=== PATIENT | female | born 1975 | race Caucasian/White ===

== ENCOUNTER 2023-09-20 06:20 | Day surgery (SDC) | payer OTHER, SELFPAY ==
[2023-09-17 12:05] VITALS: BMI 27.5
--- NOTE | 2023-09-19 09:51 | HO.ANESPROP2 ---
Documented by User: Belen Sullivan NP 09/19/23 09:51 HPI - Anesthesia Eval Consult details Narrative: 48yo F for Upper Endoscopy and Colonoscopy [facility] Past Medical History Medical History Nephrolithiasis Elevated cholesterol Anxiety Surgical History Surgical History History of surgery Hx laparoscopic cholecystectomy Hx of endoscopic retrograde cholangiopancreatography Social History Social History (Updated 09/17/23 @ 12:04 by Shanique Ramirez RN) Patient Tobacco Use Status: Never used Tobacco Are you DNR?: No Advance Directives: No Advance Directives Information Provided: Yes Nutrition Risks: No Nutritional Risk FDLMP: I just finished Meds Allergies Allergy/AdvReac Type Severity Reaction Status Date / Time azithromycin [AZITHROMYCIN] Allergy Intermediate RASH Verified 09/20/23 06:37 miconazole [From MONISTAT 7] Allergy Intermediate RASH Verified 09/20/23 06:37 Home Medications Medication Instructions Recorded Confirmed Last Taken Type No Known Home Meds 09/17/23 09/17/23 Unknown History Exam Exam Date and Time: September 19, 2023 0951 Height,Weight and Vital Signs: Height 5 ft 4 in Weight 72.575 kg Assessment and Plan Assessment Anesthesia Assessment: Chart Reviewed Documented by User: Shane Wang MD 09/20/23 07:25 [facility] Past Medical History Medical History Nephrolithiasis Elevated cholesterol Anxiety Family History Family history of problems with anesthesia: No Surgical History Surgical History History of surgery Hx laparoscopic cholecystectomy Hx of endoscopic retrograde cholangiopancreatography History of Problems with Anesthesia: No Social History Social History (Updated 09/17/23 @ 12:04 by Shanique Ramirez RN) Patient Tobacco Use Status: Never used Tobacco Are you DNR?: No Advance Directives: No Advance Directives Information Provided: Yes Nutrition Risks: No Nutritional Risk FDLMP: I just finished Meds Allergies Allergy/AdvReac Type Severity Reaction Status Date / Time azithromycin [AZITHROMYCIN] Allergy Intermediate RASH Verified 09/20/23 06:37 miconazole [From MONISTAT 7] Allergy Intermediate RASH Verified 09/20/23 06:37 Home Medications Medication Instructions Recorded Confirmed Last Taken Type No Known Home Meds 09/17/23 09/17/23 Unknown History Exam Airway Mallampati Class: II TM Dist: >3cm Neck ROM: Full Assessment and Plan Assessment Anesthesia Assessment: Anesthesia Plan Discussed Final Anesthetic Review Family History of Problems with Anesthesia: No History of Problems with Anesthesia: No NPO: Yes ASA Class: I Final Preanesthetic Review: No Changes in Pt Med Stat, Meds/Allgs Chart Reviewed, Consent Obtained/Reviewed and Anes Risks/Benef Reviewed Patient Risk: Low Procedure Risk: Low Anesthetic Plan Anesthetic Plan: MAC: Disposition: Standard PACU
[2023-09-20 06:36] LABS: UPreg QC Valid YES; Urine Pregnancy NEGATIVE (NEGATIVE)
[2023-09-20] MEDS: Lactated Ringers 1,000 ML 100 ML IVCONT (06:41)
[2023-09-20 06:48] VITALS: BP 109/74; PULSE 94; RESP 18; TEMP 36.7; O2SAT 100
--- NOTE | 2023-09-20 07:32 | P.HPSUR_ITS ---
Pre-Procedural Eval Section A Date of Service: 09/20/23 Section B Chief Complaint: screening,epigastric pain Details of Present Illness: se H&P no changesx Relevant Family History (Specify if Yes): No Relevant Social History: None Present Medications: see Short Stay Collaborative assessment Medical History: No relevant PMH Allergies: Allergies Allergy/AdvReac Type Severity Reaction Status Date / Time azithromycin [AZITHROMYCIN] Allergy Intermediate RASH Verified 09/20/23 06:37 miconazole [From MONISTAT 7] Allergy Intermediate RASH Verified 09/20/23 06:37 Review of Systems Sugical H&P ROS: Negative: Constitution, Cardiovascular, Respiratory, Neurolog ical, Psychiatric, Hem-Onc, Allergic/Immunologic, Gastrointestinal, Genitourinary, Musculoskeletal, Integumentary, Endocrine and Eyes/Ears/Nose/Throat Exam Surgical H&P Exam: Normal: HEENT, Normal: Heart, Normal: Lungs, Normal: Extremities, Normal: Abdomen, Normal: Skin and Normal: Neurological Plan Diagnosis/Plan: Unchanged I have reviewed the history and physical and performed a pertinent physical examination on my patient. No changes have occurred unless specified. Time Spent With Patient Time: Total time managing care of this patient today ____ minutes.
[2023-09-20 08:11] VITALS: BP 104/67; PULSE 86; RESP 16; TEMP 36.7; O2SAT 98
--- NOTE | 2023-09-20 08:14 | PM.OP ---
Brief Operative Note Date of Service: 09/20/23 Pre-op diagnosis: epigastric pain screening Post-op diagnosis: same Procedure: egd colon Surgeon: Wolfgang Villatoro MD Anesthesia: MAC Was an Risk Specialist used for this Procedure?: No Estimated blood loss (mL): 2 Pathology: other Condition: stable Disposition: PACU
[2023-09-20 08:26] VITALS: BP 116/80; PULSE 94; RESP 20; TEMP 36.6; O2SAT 98
--- NOTE | 2023-09-20 09:12 | OP_ITS ---
DATE OF SERVICE: 09/20/2023 SURGEON: Wolfgang Villatoro MD INDICATIONS: 1. Epigastric pain. 2. Colon cancer screening. PREOPERATIVE DIAGNOSIS: POSTOPERATIVE DIAGNOSIS: PROCEDURE PERFORMED: ESTIMATED BLOOD LOSS: COMPLICATIONS: ANESTHESIA: Monitored anesthesia care. ASSISTANTS: SPECIMENS: PROCEDURES PERFORMED: 1. Upper endoscopy with biopsy. 2. Colonoscopy to the terminal ileum. DESCRIPTION OF PROCEDURE: A history and physical were performed. The risks and benefits of the procedure were explained to the patient. Informed consent was obtained. The patient was placed in left lateral decubitus position. The Olympus video gastroscope was introduced into the esophagus, stomach, and duodenum. Examination was performed, and the scope was removed. She was repositioned for colonoscopy. A digital rectal exam was performed and was found to be normal. The Olympus pediatric video colonoscope was introduced into the rectum and advanced to the cecum. The cecum was identified by transillumination, palpation, and identification of ileocecal valve. Examination was performed, and the scope was removed. She tolerated the procedure well and was taken to recovery in stable condition. FINDINGS: Upper endoscopy: 1. Esophagus, the esophagus was normal. There was no esophagitis. Biopsies were obtained from the EG junction. 2. Stomach, the stomach was normal. Antral biopsies were obtained. 3. Duodenum, the duodenum was normal. Colonoscopy: The terminal ileum was normal. 1. The visualized colonic mucosa was within normal limits without evidence of masses or ulcers. There was scattered diverticulosis mainly in the sigmoid, but scattered throughout the colon. No polyps were identified. Retroflexed examination was normal. The quality of the prep was good. IMPRESSION: 1. Normal upper endoscopy. 2. Normal colonoscopy. RECOMMENDATIONS: 1. Follow up the biopsy results. 2. Repeat colonoscopy is recommended in 10 years for average risk individuals. MD HAILY Robertson/ELISHAL / [phone]
== END 2023-09-20 08:55 | disposition home or self-care (01) ==
PROVIDERS: Nurse Practitioner; PCP Internal Medicine; Visit Provider Internal Medicine Gastroenterology
PROC: (CPT 45378; principal; 2023-09-20 07:30)
DX: Z12.11 Encounter for screening for malignant neoplasm of colon (principal); K57.30 Diverticulosis of large intestine without perforation or abscess without bleeding; K59.00 Constipation, unspecified; R10.13 Epigastric pain; E78.00 Pure hypercholesterolemia, unspecified; E74.39 Other disorders of intestinal carbohydrate absorption; J30.9 Allergic rhinitis, unspecified; F41.9 Anxiety disorder, unspecified; Z88.1 Allergy status to other antibiotic agents; Z87.442 Personal history of urinary calculi; Z90.49 Acquired absence of other specified parts of digestive tract
CPT/HCPCS: 45378; 43239; 81025; 88305; 88342; J2250